=== PATIENT | female | born 2000 | race Caucasian/White ===

== ENCOUNTER → 2023-07-28 | Outpatient (CLI) | payer BC, SELFPAY ==
[2023-07-28 15:14] LABS: Absolute Lymphocyte Count 1.65 X10^3/uL (0.83-4.51); Absolute Neutrophil Count 8.6 X10^3/uL (2.0-7.7); Basophil# 0.03 X10^3/uL; Basophil% 0.3 % (0-1); Eosinophil# 0.09 X10^3/uL; Eosinophils% 0.8 % (0-5); Hematocrit 37.6 % (37-47); Hemoglobin 13.2 g/dL (12.0-15.0); Lymphocyte # 1.65 X10^3/ul (0.83-4.51); Lymphocyte % 14.7 % (19-41); Mean Corp Hgb Conc 35.1 g/dL (32-36); Mean Corpuscular Hgb 31.1 pg (27.0-32.0); Mean Corpuscular Volume 88.5 fL (81-99); Mean Platelet Vol. 10.1 fl (6.2-12.0); Monocyte# 0.78 X10^3/uL; NRBC Flagged by Analyzer 0 % (0-5); Neutrophil % 76.8 % (47-70); Platelet Count 284 K/mm3 (150-450); RBC Distribution Width CV 11.9 % (11.6-14.6); Red Blood Count 4.25 M/mm3 (4.2-5.4); White Blood Count 11.2 K/mm3 (4.4-11.0)
[2023-07-28 16:43] LABS: HIV - WCH Non-Reactive (Nonreactive); Hepatitis B Surface Antigen Non-Reactive (Nonreactive); Hepatitis C Antibody Non-Reactive (Nonreactive); Rubella IgG Reactive (Nonreactive); Syphilis Antibodies Non-reactive
[2023-08-01 20:08] LABS: Chlamydia By Nucleic Acid AMP Negative (Negative); Gonococcus By Nucleic Acid AMP Negative (Negative)
[2023-08-03 16:53] LABS: HPV Reflexed? NOT INDICATED
== END | disposition home or self-care (01) ==
PROVIDERS: PCP Nurse Practitioner Family; Referring Provider Obstetrics & Gynecology; Visit Provider Obstetrics & Gynecology
DX: Z34.90 Encounter for supervision of normal pregnancy, unspecified, unspecified trimester (principal); Z3A.00 Weeks of gestation of pregnancy not specified
CPT/HCPCS: 36415; 85025; 86703; 86762; 86780; 86803; 86850; 86900; 86901; 87086; 87088; 87186; 87340; 87491; 87591; 88175; G0145

== ENCOUNTER → 2023-08-25 | Outpatient (CLI) | payer BC, MEDICAID, SELFPAY | END | disposition home or self-care (01) | LOC: LABSPEC 14:33 | PROVIDERS: PCP Nurse Practitioner Family; Referring Provider Advanced Practice Midwife; Visit Provider Advanced Practice Midwife | DX: R82.71 Bacteriuria (principal) | CPT/HCPCS: 87086; 87088; 87186 ==

== ENCOUNTER → 2023-12-01 | Outpatient (CLI) | payer BC, MEDICAID, SELFPAY ==
--- OUTSIDE RECORDS SUMMARY | 2023-12-01 12:19 | XMS RPT_ITS | CCD ---
Author Name Unknown Address [address] [place] [address] Organization [facility] Care Team Providers Care Voting Machine Repairer Name Role Phone Free, Text Entry Unavailable Unavailable Inga Zaldivar Unavailable Unavailable LINETTE SANTIAGO NP Attending Unavailable LINETTE SANTIAGO NP Consulting Unavailable LINETTE SANTIAGO NP Primary Care Unavailable LINETTE SANTIAGO TIRE CARE MANAGER Admitting Unavailable PROVIDER, UNKNOWN Consulting Unavailable ANDRÉS OSMAN Referring Unavailabl e NO PRIMARY CARE, Primary Care Unavailable FAUSTO BLANC Attending Unavailable Medications Completed/Discontinued Medications Medication Drug Class(es) Dates Sig (Normalized) Sig (Original) NEGATED: Highlighted row has not occurred!No Current Medications (1 source) No Current Medic ations Problems Problem Classification Problem Date Documented Da te Episodic/Chronic Genitourinary symptoms and ill-defined conditions (2 sources) Dysuria; Translations: [Dysuria] 05-27-2021 Episodic Urinary tract infections (2 sources) Urinary tract infectious disease 05-27-2021 Episodic Results Test Name Value Interpretation Reference Range Facil ity Vital Signs Date Time Vital Sign Value Performing Clinician Facility 05-27-2021 17:35-0400 Body height 167.6 cm Text Entry Free [facility] 05-27-2021 17:35-0400 Body temperature 98.24 [degF] Text Entry Free [facility] 05-27-2021 17:35-0400 Diastolic blood pressure 79 mm[Hg] Text Entry Free [facility] 05-27-2021 17:35-0400 Heart rate 76 /min Text Entry Free [facility] 05-27-2021 17:35-0400 Respiratory rate 16 /min Text Entry Free [facility] 05-27-2021 17:35-0400 SaO2% (BldA) [Mass fraction] 100 % Text Entry Free [facility] 05-27-2021 17:35-0400 Systolic blood pressure 116 mm[Hg] Text Entry Free [facility] Encounters Encounter Date Encounter Type Care Provider Facility Start: 10-13-2023 End: 10-13-2023 ambulatory ANDRÉS OSMAN [facility] Start: 01-07-2023 End: 01-07-2023 [facility] Start: 05-27-2021 End: 05-27-2021 Emergency department patient visit Inga Zaldivar [facility] 01 Payers Date Payer Category Payer Unknown [id number] 2001 Unknown [id number] Unknown See Registration System\SELF PAY Unknown [id number] Social History Date Type Detail Facility [facility] Tobacco smoking consumption unknown [facility] Summary Purpose Family History No Family History Records FoundNo Family History Records FoundNo Family History Records Found Advance Directives No Advanced Directives Records FoundNo Advanced Directives Records FoundNo Advanced Directives Records Found Additional Source Comments <item> Privacy Markings (unrecogniz ed section and content) Section Author: Kayla Ramirez PROHIBITION ON REDISCLOSURE OF CONFIDENTIAL INFORMATION This notice accompanies a disclosure of information concerning a client made to you with the consent of such client. INFORMATION SOURCE (unrecogn ized section and content) DATE CREATED AUTHOR AUTHOR'S ORGANIZ ATION 01/08/2023 [facility] DATE CREATED AUTHOR AUTHOR'S ORGANIZ ATION 10/16/2023 [facility] FOR RECORDS PERTAINING TO PATIENTS WHO ARE OR HAVE BEEN ENROLLED IN A CHEMICAL DEPENDENCY/SUBSTANCEABUSE PROGRAM, SOME INFORMATION MAY BE OMITTED. This clinical summary was aggregated from multiple sources. Caution should be exercised in using it in the provision of clinical care. This summary normalizes information from multiple sources, and as a consequence, information in this document may materially change the coding, format and clinical context of patient data. In addition, data may be omitted in some cases. CLINICAL DECISIONS SHOULD BE BASED ON THE PRIMARY CLINICAL RECORDS. [facility] [employer], [facility]. provides no warranty or guarantee of the accuracy or completeness of information in this document.
[2023-12-01 13:10] LABS: Absolute Lymphocyte Count 1.79 X10^3/uL (0.83-4.51); Absolute Neutrophil Count 8.1 X10^3/uL (2.0-7.7); Basophil# 0.07 X10^3/uL; Basophil% 0.6 % (0-1); Eosinophil# 0.07 X10^3/uL; Eosinophils% 0.6 % (0-5); Hematocrit 37.1 % (37-47); Hemoglobin 12.2 g/dL (12.0-15.0); Lymphocyte # 1.79 X10^3/ul (0.83-4.51); Lymphocyte % 16.6 % (19-41); Mean Corp Hgb Conc 32.9 g/dL (32-36); Mean Corpuscular Hgb 30.5 pg (27.0-32.0); Mean Corpuscular Volume 92.8 fL (81-99); Mean Platelet Vol. 10.5 fl (6.2-12.0); Monocyte# 0.55 X10^3/uL; Monocyte% 5.1 % (0-10); NRBC Flagged by Analyzer 0 % (0-5); Neutrophil # 8.12 X10^3/uL (2.7-7.7); Neutrophil % 75.2 % (47-70); Platelet Count 247 K/mm3 (150-450); RBC Distribution Width CV 12.9 % (11.6-14.6); RBC Distribution Width SD 43.8 fl (35.1-43.9); White Blood Count 10.8 K/mm3 (4.4-11.0)
[2023-12-01 13:37] LABS: Glucose Challenge Gest 1H 50g 86 mg/dL (70-140)
[2023-12-01 14:12] LABS: HIV - WCH Non-Reactive (Nonreactive); Syphilis Antibodies Non-reactive
== END | disposition home or self-care (01) ==
PROVIDERS: PCP Nurse Practitioner Family; Visit Provider Obstetrics & Gynecology
DX: O26.899 Other specified pregnancy related conditions, unspecified trimester (principal); Z67.91 Unspecified blood type, Rh negative; Z3A.00 Weeks of gestation of pregnancy not specified
CPT/HCPCS: 36415; 82950; 85025; 86703; 86780; 86850; 86900; 86901

== ENCOUNTER → 2023-12-09 | Outpatient (CLI) | payer BC, MEDICAID, SELFPAY ==
--- OUTSIDE RECORDS SUMMARY | 2023-12-09 10:08 | XMS RPT_ITS | CCD ---
Author Name Unknown Address [address] [place] [address] Organization [facility] Care Team Providers Care Clothing Cutter Name Role Phone Free, Text Entry Unavailable Unavailable Inga Zaldivar Unavailable Unavailable LINETTE SANTIAGO NP Attending Unavailable LINETTE SANTIAGO NP Consulting Unavailable LINETTE SANTIAGO NP Primary Care Unavailable LINETTE SANTIAGO GIRLS SWIMMING COACH Admitting Unavailable PROVIDER, UNKNOWN Consulting Unavailable ANDRÉS [...] Body height 167.6 cm Text Entry Free [facility] 05-27-2021 17:35-0400 Body temperature 98.24 [degF] Text Entry Free [facility] 05-27-2021 17:35-0400 Diastolic blood pressure 79 mm[Hg] Text Entry Free [facility] 05-27-2021 17:35-0400 Heart rate 76 /min Text Entry Free [facility] 05-27-2021 17:35-0400 Respiratory rate 16 /min Text Entry Free [facility] 05-27-2021 17:35-0400 SaO2% (BldA) [Mass fraction] 100 % Text Entry Free [facility] 05-27-2021 17:35-0400 Systolic blood pressure 116 mm[Hg] Text Entry Free [facility] Encounters Encounter Date Encounter Type Care Provider Facility Start: 10-13-2023 End: 10-13-2023 ambulatory ANDRÉS OSMAN [facility] Start: 01-07-2023 End: 01-07-2023 [facility] Start: 05-27-2021 End: 05-27-2021 Emergency department patient visit Inga Zaldivar [facility] 01 Payers Date Payer Category Payer Unknown [id number] 2001 Unknown [id number] Unknown See Registration System\SELF PAY Unknown [id number] Social History Date Type Detail Facility [facility] Tobacco smoking consumption unknown [facility] Summary Purpose Family History No Family [...] DATE CREATED AUTHOR AUTHOR'S ORGANIZ ATION 01/08/2023 [facility] DATE CREATED AUTHOR AUTHOR'S ORGANIZ ATION 10/16/2023 [facility] FOR RECORDS PERTAINING TO PATIENTS WHO [...] BE BASED ON THE PRIMARY CLINICAL RECORDS. [facility] [employer], [facility]. provides no warranty or guarantee of the accuracy or completeness of information in this document.
[2023-12-09 11:01] LABS: Absolute Lymphocyte Count 1.58 X10^3/uL (0.83-4.51); Absolute Neutrophil Count 8.6 X10^3/uL (2.0-7.7); Basophil# 0.07 X10^3/uL; Basophil% 0.6 % (0-1); Eosinophil# 0.06 X10^3/uL; Eosinophils% 0.5 % (0-5); Hematocrit 36.5 % (37-47); Lymphocyte # 1.58 X10^3/ul (0.83-4.51); Lymphocyte % 14.3 % (19-41); Mean Corp Hgb Conc 32.9 g/dL (32-36); Mean Corpuscular Hgb 30.4 pg (27.0-32.0); Mean Corpuscular Volume 92.4 fL (81-99); Mean Platelet Vol. 10.4 fl (6.2-12.0); Monocyte# 0.48 X10^3/uL; Monocyte% 4.3 % (0-10); NRBC Flagged by Analyzer 0 % (0-5); Neutrophil # 8.62 X10^3/uL (2.7-7.7); Neutrophil % 78.1 % (47-70); Platelet Count 249 K/mm3 (150-450); RBC Distribution Width SD 43.8 fl (35.1-43.9); Red Blood Count 3.95 M/mm3 (4.2-5.4); White Blood Count 11.1 K/mm3 (4.4-11.0)
[2023-12-09 11:28] LABS: Glucose Challenge Gest 1H 50g 129 mg/dL (70-140)
[2023-12-09 11:50] LABS: HIV - WCH Non-Reactive (Nonreactive); Syphilis Antibodies Non-reactive
== END | disposition home or self-care (01) ==
LOC: LAB 09:41
PROVIDERS: PCP Nurse Practitioner Family; Referring Provider Obstetrics & Gynecology; Visit Provider Obstetrics & Gynecology
DX: Z34.00 Encounter for supervision of normal first pregnancy, unspecified trimester (principal); Z3A.00 Weeks of gestation of pregnancy not specified
CPT/HCPCS: 36415; 82950; 85025; 86703; 86780; 86850; 86870; 86900; 86901

== ENCOUNTER → 2024-02-03 | Outpatient (CLI) | payer BC, MEDICAID, SELFPAY ==
[2024-02-03 11:30] LABS: Group B Strep DNA By PCR POSITIVE (Negative); Probe Check PASS
== END | disposition home or self-care (01) ==
PROVIDERS: PCP Nurse Practitioner Family; Referring Provider Advanced Practice Midwife; Visit Provider Advanced Practice Midwife
DX: O23.40 Unspecified infection of urinary tract in pregnancy, unspecified trimester (principal); Z3A.00 Weeks of gestation of pregnancy not specified
CPT/HCPCS: 87086; 87653

== ENCOUNTER → 2024-03-02 | Outpatient (CLI) | payer BC, MEDICAID, SELFPAY ==
--- NOTE | 2024-03-02 11:15 | US_ITS ---
STUDY: SECOND AND THIRD TRIMESTER OBSTETRICAL ULTRASOUND - LIMITED REASON FOR EXAM: Female, 24 years old post dates LMP: May 25, 2023. PRIOR ULTRASOUND: None. TECHNIQUE: Transabdominal TECHNICAL QUALITY: Adequate. FINDINGS: There is a single intrauterine fetus. The fetus is in a cephalic presentation. There is demonstrated cardiac activity with a heart rate of 150 bpm. There is a normal amniotic fluid volume. The largest amniotic fluid pocket measures 4.9 cm. The amniotic fluid index (SVETLANA) is 12.5 cm. The placenta is right lateral in location and is not low lying. There are Grade 3 placental changes. The cervical length was not measured due to the head position. BIOMETRY: BPD: 9.14 cm: 37 weeks, 1 days HC: 34.55 cm: 40 weeks, 0 days AC: 36.3 cm: 40 weeks, 1 days FL: 7.28 cm: 37 weeks, 2 days Age by LMP: 40 weeks, 2 days. COLETTE by LMP: February 28, 2023. age by current US: 38 weeks, 5 days. COLETTE by current US: March 11, 2024. Estimated weight: 3674 grams, +/- 551 grams, no percentile available for this date. US/OB Limited With Biometrics IMPRESSION: Single live intrauterine gestation with mean gestational age of 38 weeks and 5 days. Electronically Signed: Mack Deleon MD at 14:45 EDT ,
== END | disposition home or self-care (01) ==
LOC: US 11:14
PROVIDERS: PCP Nurse Practitioner Family; Referring Provider Obstetrics & Gynecology; Visit Provider Obstetrics & Gynecology
DX: O48.0 Post-term pregnancy (principal); Z3A.00 Weeks of gestation of pregnancy not specified
CPT/HCPCS: 76816

== ENCOUNTER 2024-03-07 19:17 | Inpatient (IN) | payer BC, MEDICAID, SELFPAY ==
[2024-03-07 19:26] VITALS: BP 122/79; PULSE 81
[2024-03-07 19:27] VITALS: RESP 16; TEMP 37.2
[2024-03-07 19:28] VITALS: PULSE 86; O2SAT 98
[2024-03-07] MEDS: Lactated Ringers 1,000 ML 50 ML IV (19:35)
[2024-03-07 19:50] VITALS: BMI 28.8
[2024-03-07 19:50] LABS: Absolute Neutrophil Count 9.1 X10^3/uL (2.0-7.7); Basophil# 0.08 X10^3/uL; Basophil% 0.6 % (0-1); Eosinophil# 0.09 X10^3/uL; Eosinophils% 0.7 % (0-5); Hematocrit 34.7 % (37-47); Hemoglobin 11.4 g/dL (12.0-15.0); Lymphocyte % 17.5 % (19-41); Mean Corp Hgb Conc 32.9 g/dL (32-36); Mean Corpuscular Hgb 29.3 pg (27.0-32.0); Mean Corpuscular Volume 89.2 fL (81-99); Mean Platelet Vol. 11.1 fl (6.2-12.0); Monocyte# 0.87 X10^3/uL; Monocyte% 6.9 % (0-10); NRBC Flagged by Analyzer 0 % (0-5); Neutrophil # 9.11 X10^3/uL (2.7-7.7); Neutrophil % 72.5 % (47-70); Platelet Count 246 K/mm3 (150-450); RBC Distribution Width CV 13.1 % (11.6-14.6); RBC Distribution Width SD 42.3 fl (35.1-43.9); Red Blood Count 3.89 M/mm3 (4.2-5.4); White Blood Count 12.6 K/mm3 (4.4-11.0)
[2024-03-07 20:27] LABS: Syphilis Antibodies Non-reactive
[2024-03-07] MEDS: miSOPROStol 25 MCG TABLET PO (20:42)
[2024-03-08] VITALS (64 sets, daily range): BP systolic 99–132; BP diastolic 56–80; PULSE 77–118; RESP 16–18; TEMP 36.1–37.6; O2SAT 82–99
[2024-03-08] MEDS: miSOPROStol 25 MCG TABLET PO ×2 (00:44→04:45)
--- NOTE | 2024-03-08 07:50 | PCM.HP.OB ---
HPI - General General Date of Admission: 03/07/24 Date of Service: 03/08/24 HPI Moise BERGERON, is a 24 F at 41.1 weeks gestation who presents to the unit for induction of labor for postdates. Maternal Data Information COLETTE Calculator Estimated Delivery Date Method Current WG Current Estimate 02/29/24 LMP (Certain) 41w 1d Final COLETTE: 02/29/24 Final COLETTE Source: US >20 weeks Gestational age: 41.1 weeks PFSH PFSH Medical History Asymptomatic bacteriuria Recurrent UTI Home Medications multivitamin no.47-iron fum 27 mg-folate no.1 1 mg-dha 300 mg capsule (PNV-DHA) 1 cap PO DAILY 07/19/23 [History Last Taken 03/06/24 22:00 1 cap] famotidine 20 mg tablet (Pepcid) 20 mg PO DAILY #30 tabs 12/09/23 [Rx Last Taken 03/06/24 22:00 20 mg] ondansetron 4 mg disintegrating tablet 4 mg PO Q6H #30 tabs 12/23/23 [Rx Last Taken Unknown] Allergy/AdvReac Type Severity Reaction Status Date / Time No Known Allergies Allergy Verified 03/07/24 20:25 Social History adopted: No household members: significant other current occupational status: employed 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 pets and animals: Yes pets and animals: dog(s) history of recent travel: Yes ([place] ) out of state: Yes out of country: No sexually active: Yes Smoking Status: Never smoker alcohol intake: never substance use type: does not use well-balanced diet: daily or most days caffeine: No eating out: rarely or never during the past year weight has: remained stable what type of physical activity do you participate in: walking frequency: 1-2 times per week duration: 15-30 minutes/day ciro/christian: None seatbelt use: always do you feel safe at home: Yes additional social history: BF- Raghav History 1 Elective abortions Hx Para 0 Spontaneous abortions Hx # Term Pregnancies Ectopic pregnancies Hx # Pregnancies Multiple births # of living children Visit Details Expected Delivery Route/Plan Labor Preferences- CB/BF classes: discussed labor support person: mom and raghav boyfriend labor intervention preferences: none pain management options preferred: epidural cut cord/dad catch: yes cut the cord : yes PP control planned: rekha discussed possible routes of delivery and associated risks: [] special requests: [] Plans Covid status: declined Flu vaccine: declined Tdap vaccine: Rhogam: 27 weeks for bleeding LARC form signed: declined movement and labor precautions reviewed. Problem list reviewed and updated with the most current plan of care details and appropriate orders placed. Relevant counseling for the gestational age provided. Continue routine care and follow up unless otherwise noted in visit notes/problem list details OB Flowsheet Initial Weight: Not Recorded Date <del>?</del> EGA Weight BP Urine Prot <del>?</del> Glucose FHR FuHt Pres Dilation <del>?</del> Effaced St Visit Note 07/28/23 <del>?</del> 9w 1d 152 lb 122/62 <del>?</del> 170 <del>?</del> SM- CRL 2.2cm cons with LMP 08/25/23 <del>?</del> 13w 1d 148 lb 117/73 <del>?</del> 165 <del>?</del> KW-no vb/cramping. no concerns today. US ordered 09/22/23 <del>?</del> 17w 1d 144 lb 2 oz 119/69 Negative <del>?</del> Negative 150 <del>?</del> KW-no vb/cramping. no concerns today. still having some N/V. adding B6 and Unisom to Zofran. US on 10/13. labs reviewed. ITs a GIRL!! 10/21/23 <del>?</del> 21w 2d 144 lb 2 oz 119/77 Negative <del>?</del> Negative 147 <del>?</del> JV- no cramping or bleeding, no dec fm. anatomy scan is normal 11/18/23 <del>?</del> 25w 2d 152 lb 8 oz 115/76 Negative <del>?</del> Negative 150 <del>?</del> SM- no vb lof good fm no regular ctx 12/01/23 <del>?</del> 27w 1d 155 lb 106/70 <del>?</del> 145 0 <del>?</del> SM_ co vb yesterday and today saw it in the toilet. no regular ctx, some back pain good fmno trauma no intercourse. 12/09/23 <del>?</del> 28w 2d 158 lb 111/75 <del>?</del> 145 <del>?</del> KW-no vb/cramping. good fm. labs today. KW-no vb/cramping. good fm. labs today. had rhogam last week for bleeding. 12/23/23 <del>?</del> 30w 2d 155 lb 2 oz 122/76 Negative <del>?</del> Negative 140 <del>?</del> JV- wants to think about tdap. wants mirena at 6 weeks if possible. no lof, vaginal bleeding, or dec fm. 01/06/24 <del>?</del> 32w 2d 160 lb 108/74 Trace A <del>?</del> Negative 144 32 <del>?</del> LC-no vb/ctx/lof. good fm. +nausea, taking zofran daily. add back unisom at night. tdap obtained today. 01/20/24 <del>?</del> 34w 2d 164 lb 106/72 Negative <del>?</del> Negative 140 34 <del>?</del> SM- no vb lof good fm no regular ctx discussed repeating a urine culture again just due to previous two positives. 02/03/24 <del>?</del> 36w 2d 169 lb 4 oz 118/80 <del>?</del> 150 35 Cephalic 0 <del>?</del> kw-no vb/lof/ctx. good fm. GBS today. repeat urine culture 02/10/24 <del>?</del> 37w 2d 172 lb 109/77 Negative <del>?</del> Negative 150 37 Cephalic 0.5 <del>?</del> SM- no vb lof good fm no regular ctx 02/17/24 <del>?</del> 38w 2d 173 lb 116/82 Negative <del>?</del> Negative 140 37 Cephalic 1 <del>?</del> 20 -3 SM- no vb lof good fm no regular ctx 02/24/24 <del>?</del> 39w 2d 176 lb 120/80 Negative <del>?</del> Negative 145 38 Cephalic 1.5 <del>?</del> 50 -2 KW- no vb/lof/reg ctx. good fm. IOL for 41 weeks. requesting sweep next week. 03/01/24 <del>?</del> 40w 1d 178 lb 130/85 Negative <del>?</del> Negative 140 36 Cephalic 1.5 <del>?</del> SM- no vb lof good fm no regular ctx rough estimate kannan 10 cm formal US ordered NST FHR Rate Baby A Baseline: 140 Variability:: Moderate Accelerations:: 15 x 15 Decelerations:: None NST Reactive:: Yes FHR Category:: Category I Uterine Activity:: 1.5-3 minutes ROS Constitutional Constitutional: Denies change in weight, fatigue, fever(s), headache(s), poor appetite or weakness Eyes Eyes: Denies blurry vision, change in vision, floaters, seeing flashes or spots in vision ENT HEENT: Denies dizziness, headache(s), loss taste/smell or sore throat Cardiovascular Cardiovascular: Denies chest pain, dizziness, dyspnea, irregular heart rhythm, lightheadedness, palpitations or rapid heart rate Respiratory/Chest Respiratory/Chest: Denies change in mental status, chest tightness, cough, dyspnea or breast pain Gastrointestinal Gastrointestinal: Denies anorexia, chewing difficulty, constipation, diarrhea or weight changes Genitourinary Genitourinary: Denies difficulty urinating, dysuria, flank pain, genital pain, urinary frequency or urinary urgency Musculoskeletal Musculoskeletal: Denies back pain, difficulty walking, extremity pain, joint pain, muscle cramps or muscle weakness Integumentary Integumentary: Denies lesions or unusual bruising Neurologic Neurologic: Denies abnormal movements, abnormal speech, dizziness, numbness, seizure-like activity, syncope or weakness Psychiatric Psychiatric: Denies behavioral changes, change in appetite, confusion, depression, homicidal ideation, suicidal ideation or suicidal thoughts Endocrine Endocrinology: Denies excessive sweating, polydipsia or polyuria Hematologic/Lymphatic Hematologic/Lymphatic: Denies anemia Allergic/Immunologic Allergic/Immunologic: Denies itchy eyes, lip swelling, throat swelling, tongue swelling or wheezing Vital Signs Vital Signs Vital Signs: 03/07/24 19:26 03/07/24 19:26 03/07/24 19:27 Temperature Temperature Source Tympanic Pulse Rate 81 Respiratory Rate Blood Pressure 122/79 H BP Systolic 122 BP Diastolic 79 Pulse Ox 03/07/24 19:28 03/07/24 19:27 03/07/24 19:28 Temperature Temperature Source Pulse Rate 86 Respiratory Rate 16 Blood Pressure BP Systolic BP Diastolic Pulse Ox 98 03/07/24 19:27 03/08/24 00:38 03/08/24 00:38 Temperature 98.9 F Temperature Source Pulse Rate 77 Respiratory Rate Blood Pressure 111/65 BP Systolic 111 BP Diastolic 65 Pulse Ox 03/08/24 00:38 03/08/24 00:38 03/08/24 00:38 Temperature Temperature Source Tympanic Pulse Rate Respiratory Rate 16 Blood Pressure BP Systolic BP Diastolic Pulse Ox 98 03/08/24 00:38 03/08/24 04:13 03/08/24 04:14 Temperature 97.0 F L Temperature Source Tympanic Pulse Rate Respiratory Rate Blood Pressure 126/77 H BP Systolic 126 BP Diastolic 77 Pulse Ox 03/08/24 04:14 03/08/24 04:13 03/08/24 04:14 Temperature Temperature Source Pulse Rate 84 Respiratory Rate 16 Blood Pressure BP Systolic BP Diastolic Pulse Ox 98 03/08/24 04:13 03/08/24 07:41 03/08/24 07:41 Temperature 97.0 F L Temperature Source Pulse Rate 84 Respiratory Rate Blood Pressure 117/75 BP Systolic 117 BP Diastolic 75 Pulse Ox 03/08/24 07:41 03/08/24 07:37 03/08/24 07:37 Temperature Temperature Source Temporal Pulse Rate Respiratory Rate 16 Blood Pressure BP Systolic BP Diastolic Pulse Ox 97 03/08/24 07:37 03/08/24 07:37 Temperature 97.0 F L Temperature Source Pulse Rate Respiratory Rate Blood Pressure BP Systolic BP Diastolic Pulse Ox 97 Weight Weight: 179 lb 0.246 oz Body Mass Index (BMI) 28.8 Physical Exam Const alert, oriented x3 and no apparent distress General Appearance: cooperative Orientation / Consciousness: awake HEENT normocephalic Neck full ROM Lymph Lymphatic: no lymphadenopathy noted Chest inspection of chest normal Resp normal respiratory effort and normal air movement Effort and Inspection: able to speak in complete sentences and symmetric chest movement GI soft to palpation and non-tender Inspection: gravid Palpation: soft; Negative for tender external exam normal Manual OB Exam: dilated 4, effaced 80 and station -2 Back/Spine normal to inspection Extremity normal to inspection and full ROM Skin no rashes or lesions noted Psych mental status grossly normal Appearance: grossly normal Speech: normal speech Labs Labs Labs: Blood Type A NEGATIVE Antibody Screen NEGATIVE Hct 34.7 % (37-47) L Hgb 11.4 g/dL (12.0-15.0) L Obstetrics Ultrasound Syphilis Total Ab Non-reactive Rubella IgG Antibody Reactive (Nonreactive) Hep Bs Antigen Non-Reactive (Nonreactive) Hepatitis C Antibody Non-Reactive (Nonreactive) Chlamydia DNA (RIC) Negative (Negative) N.gonorrhoeae DNA (RIC) Negative (Negative) HIV 1&2 Antibody Non-Reactive (Nonreactive) Glucose 1 Hr 50 gm 129 mg/dL (70-140) Group B Strep DNA POSITIVE (Negative) H Assessment & Plan (1) Encounter for induction of labor: COMMENT: postdates, cytotec/pitocin (2) Positive GBS test: COMMENT: treat in labor (3) Contraceptive management: COMMENT: wants mirena at 6 week post . No PA needed Ref#[id number] (4) UTI in , antepartum: COMMENT: macrobid-repeat urine cx neg (5) Rh negative status during : COMMENT: rhogam given 10/01 due to vb. 27 weeks. (6) Family history of autism in sibling: COMMENT: Sister (7) Supervision of normal first : COMMENT: PRR , COLETTE 02/29/24 girl Marge Avilez (8) : QUALIFIERS: Weeks of gestation: 40 weeks Qualified Code(s): Z3A.40 - 40 weeks gestation of COMMENT: declined ntd genetic & carrier testing. nl anatomy Charges/Coding Multi Select Codes Urinary/Genital Urinary/Genital CPT Codes: No Charge
[2024-03-08] MEDS: Penicillin G Pot 5,000,000 UNITS in 0.9% Normal Saline (100mL MB+) 100 ML 150 UNITS IV (07:57)
[2024-03-08] MEDS: LACTATED RINGERS 500 ML 999 ML IV (08:24)
[2024-03-08] MEDS: fentaNYL-bupivacaine (epidural) 100 ML BAG EPIDURAL ×2 (09:12→14:30)
[2024-03-08] MEDS: Lactated Ringers 1,000 ML 200 ML IV (11:12)
--- NOTE | 2024-03-08 11:37 | PN_ITS ---
Progress Note comfortable with epidural current tracing: FHT: 140 Moderate variability reactive no decelerations category I tracing [place]: 3-4 minute Contractions Membranes:SROM at 1130 clear fluid SVE:7//-1 at 1045 A/P: Continue with position changes Epidural per anesthesia PCN for GBS prophylaxis treated at [address] Key aware of above assessment and agrees with plan of care Assessment & Plan Assessment/Plan (1) Encounter for induction of labor: (2) Uterine size-date discrepancy, third trimester: (3) Positive GBS test: (4) Contraceptive management: (5) UTI in , antepartum: (6) Rh negative status during : (7) Family history of autism in sibling: (8) Supervision of normal first : (9) : QUALIFIERS: Weeks of gestation: 40 weeks Qualified Code(s): Z3A.40 - 40 weeks gestation of Multi Select Codes Urinary/Genital Urinary/Genital CPT Codes: No Charge
[2024-03-08] MEDS: Penicillin G 3,000,000 Units 50 ML 100 UNITS IV (12:23)
[2024-03-08] MEDS: Oxytocin 15 Units/NS 250ml 15 UNITS/250 ML IV.SOLN 2 UNITS IV (14:40)
--- NOTE | 2024-03-08 15:23 | OP.PCM_ITS ---
Assessment & Plan (1) Vaginal delivery: COMMENT: KW 41.1 girl IOL (2) Positive GBS test: COMMENT: treat in labor (3) Contraceptive management: COMMENT: wants mirena at 6 week post . No PA needed Ref#[id number] (4) Rh negative status during : COMMENT: rhogam given 10/01 due to vb. 27 weeks. (5) Family history of autism in sibling: COMMENT: Sister (6) Supervision of normal first : COMMENT: PRR , COLETTE 02/29/24 girl Marge Avilez (7) : QUALIFIERS: Weeks of gestation: 40 weeks Qualified Code(s): Z3A.40 - 40 weeks gestation of COMMENT: declined ntd genetic & carrier testing. nl anatomy Maternal Data Information COLETTE Calculator Estimated Delivery Date Method Current WG Current Estimate 02/29/24 LMP (Certain) 41w 1d Final COLETTE: 02/29/24 Final COLETTE Source: US >20 weeks Gestational age: 41.1 Vaginal Delivery Maternal Presentation Maternal Presentation: Medically Indicated Induction Maternal Presentation: Progressed well to 10cm dilated and made steady progress with effective maternal pushing. Delivered the head in OPHELIA presentation. The head was delivered atraumatically and a loose nuchal cord was identified, anterior shoulder was already delivering and cord was unable to be reduced. Infant delivered through easily. The anterior and posterior shoulders delivered without complication followed by the rest of the infant and the was placed on the maternal abdomen. Delayed cord clamping was employed for approximately 3 minutes. Cord was clamped and cut and gentle traction was applied to the cord and the placenta delivered spontaneously, trailing membranes were noted and were teased out using ring forceps. Uterine sweep performed, additional membranes extracted with first sweep and appeared to be rest of membranes. Second sweep was clear. Immediately following, it was noted to be intact with a 3 vessel cord. The perineum and vagina were inspected and noted to have a second degree laceration which was repaired with 3-0 Vicryl in the usual fashion. EBL was 150cc. Patient and tolerated delivery well. Apgars 8/9. Bleeding stable and uterus firm Dr Grant notified of vaginal delivery and orders reviewed. Physician agrees with current plan of care. Type of Induction: Cytotec Medical Reason for Induction: Post term Operative Information Date of Procedure: 04/25/24 Pre-Operative Diagnosis: See AP comments Post-Operative Diagnosis: Same Surgery / Procedure Performed: Spontaneous Vaginal Delivery supervisor [employer]: Kacey Betancourt Type of Anesthesia: None Estimated Blood Loss: 150 Time of Delivery: 14:58 Findings Presentation: Vertex Amniotic Membrane Rupture Type: Spontaneous Amniotic Fluid Description: Clear Placental Delivery Description: Spontaneous Placenta Disposition: [facility] Cord Vessel Description: 3 Vessels Cord Entanglement: Around neck x 1, loose Infant A Gender: Female (1 minute): 8 (5 minute): 9 Delayed Cord Clamping: Yes Post Vaginal Delivery Medications Given After Delivery: IV Pitocin Episiotomy Description: None Laceration: 2nd degree Complication Complications: None Multi Select Codes Urinary/Genital Urinary/Genital CPT Codes: 43069 Vaginal Delivery [facility]
[2024-03-08] MEDS: Oxytocin 15 Units/NS 250ml 15 UNITS/250 ML IV.SOLN 83 UNITS IV (15:32)
[2024-03-08] MEDS: Acetaminophen 500 MG Tablet PO (15:49)
[2024-03-08] MEDS: 0.9% Saline Lock 10 ML Syringe IV (23:14)
[2024-03-08] MEDS: Rho(D) Immune Globulin 300 MCG (1500 Unit) Syringe IV (23:14)
[2024-03-08] MEDS: Ibuprofen 600 MG Tablet PO (23:21)
[2024-03-09] VITALS (8 sets, daily range): BP systolic 109–126; BP diastolic 58–76; PULSE 61–117; RESP 16–17; TEMP 36.2–36.8; O2SAT 83–98
[2024-03-09] MEDS: Benzocaine/Lanolin/Aloe Vera 1 SPRAY EACH TOPICAL (07:36)
[2024-03-09] MEDS: Ibuprofen 600 MG Tablet PO (07:36)
--- NOTE | 2024-03-09 08:38 | PCM.PN.OB ---
Subjective Subjective Patient doing well without complaints. Tolerating PO. Ambulating and voiding without difficulty. Feeding well. Denies chest pain, shortness of breath, calf pain/swelling, fevers, chills, lightheadedness. Objective Data Objective Data Vital Signs: Vital Signs Temp Pulse Resp BP Pulse Ox O2 Del Method 97.9 F 97 17 113/58 L 97 Room Air 03/09/24 07:42 03/09/24 07:42 03/09/24 07:42 03/09/24 07:42 03/09/24 07:42 03/09/24 07:42 Oxygen Delivery Method Room Air Weight: 179 lb 0.246 oz Body Mass Index (BMI) 28.8 Intake & Output: Intake and Output for Last 24 Hours 03/07/24 03/08/24 03/09/24 23:59 23:59 23:59 Intake Total 58.33 / 58.33 2767.60 / 2767.60 Output Total 1050 / 1050 300 / 300 Balance 58.33 / 58.33 1717.60 / 1717.60 -300 / -300 Lab / Micro Data 03/07/24 19:35 Labs: Laboratory Results - last 24 hr 03/08/24 17:30: Screen NEGATIVE, Baby's Blood Type O POSITIVE, Baby's ERYN NEGATIVE Physical Exam Const alert and no apparent distress Neck full ROM Lymph Lymphatic: no lymphadenopathy noted Chest inspection of chest normal Resp normal respiratory effort, normal air movement and no retractions Cardio regular rate and regular rhythm GI normal to inspection, nondistended, normoactive bowel sounds Uterus Palpation: uterus fundus firm Extremity normal to inspection, full ROM and normal capillary refill Skin no rashes or lesions noted Psych mental status grossly normal Assessment & Plan (1) Vaginal delivery: COMMENT: KW 41.1 girl IOL PLAN: s/p PPD # 1 1. routine post delivery care 2. breast feeding- support given 3. rh positive 4. rubella immune 5. desires d/c home this afternoon following 24 hour testing.
== END 2024-03-09 16:45 | disposition home or self-care (01) | DRG 807 ==
PROVIDERS: Admitting Provider Advanced Practice Midwife; PCP Nurse Practitioner Family; Visit Provider Advanced Practice Midwife
DX: O48.0 Post-term pregnancy (principal); Z37.0 Single live birth; O69.81X0 Labor and delivery complicated by cord around neck, without compression, not applicable or unspecified; O70.1 Second degree perineal laceration during delivery; O99.824 Streptococcus B carrier state complicating childbirth; Z3A.41 41 weeks gestation of pregnancy
CPT/HCPCS: 59025; 59050; 85025; 85461; 86780; 86850; 86900; 86901; 90384; 99221; J7120; A4216; G0378; J2790; J2791